=== PATIENT | female | born 1990 | race Caucasian/White ===

== ENCOUNTER 2016-06-11 05:10 | Inpatient (IN) | payer MEDICAID ==
[~2016-06-11] VITALS: Ht 154.9 cm; Wt 47.6 kg
[~2016-06-11 05:10] MED LIST: HYDR200T35 PO; NAPR-681 PO; PRED10TA PO
[2016-06-11] MEDS ORDERED: FAMOTIDINE 20MG/2ML VIAL IV ONE (06:15)
[2016-06-11] MEDS ORDERED: SODIUM CHLORIDE 0.9% 1000ML BAG (SEPSIS BOLUS) IV ONE (06:15)
[2016-06-11] MEDS ORDERED: METHYLPREDNISOLONE SOD SUCC 125 MG/2 ML VIAL IV ONE (06:15)
[2016-06-11] MEDS ORDERED: DIPHENHYDRAMINE 50MG/ML VIAL IV ONE (06:15)
[2016-06-11] MEDS ORDERED: VANCOMYCIN 1 G PREMIX 200 ML IV SCH (06:30)
[2016-06-11 06:45] LABS: HCG SCREEN NEGATIVE
[2016-06-11 06:46] LABS: PROTHROMBIN TIME 9.9 sec
[2016-06-11 06:51] LABS: ALANINE AMINOTRANSFERASE 25 IU/L (13-61); ALBUMIN 2.6 g/dL (3.4-5.0); ANION GAP 13; CALCIUM 7.4 mg/dL (8.5-10.1); CARBON DIOXIDE 24 mEq/L (21-32); CHLORIDE 109 mEq/L (98-107); INDEX HEMOLYSI 1 (1-3); INDEX ICTERIC 1 (1-4); INDEX LIPEMIC 1 (1-3); UREA NITROGEN BLOOD 12 mg/dL (7-21); eGFR > 60 mL/min (>60)
[2016-06-11 06:51] LABS: CLARITY URINE CLEAR (CLEAR); COLOR URINE YELLOW (YELLOW); GLUCOSE URINE NEGATIVE (NEGATIVE); KETONES URINE NEGATIVE (NEGATIVE); LEUKOCYTE ESTERASE URINE NEGATIVE (NEGATIVE); NITRITE URINE NEGATIVE (NEGATIVE); OCCULT BLOOD URINE NEGATIVE (NEGATIVE); PROTEIN URINE 3+ (NEGATIVE); SPECIFIC GRAVITY URINE 1.025 (1.005-1.030); UROBILINOGEN URINE 0.2 E.U./dL (0.2-1.0)
[2016-06-11 06:52] LABS: BASOPHILS % 0.7 % (0.0-2.0); EOSINOPHILS % 0.5 % (0.0-5.0); HEMOGLOBIN. 9.9 g/dL (12.0-16.0); LYMPHOCYTES % 49.6 % (20.0-50.0); MEAN CORPUSCULAR HEMOGLOBIN 28.1 pg (28.0-32.0); MEAN CORPUSCULAR HGB CONC 33.1 g/dL (31.0-37.0); MEAN CORPUSCULAR VOLUME 84.9 fL (81.0-99.0); MEAN PLATELET VOLUME 8.3 fl (7.4-10.4); MONOCYTES % 12.9 % (2.0-8.0); NEUTROPHILS % 36.3 % (40.0-76.0); PLATELET 231 x1000/uL (130-400); RED BLOOD CELL COUNT 3.53 mill/uL (4.2-5.4); RED CELL DISTRIBUTION WIDTH 16.6 % (11.6-14.6); WHITE BLOOD COUNT 2.7 x1000/uL (4.5-11.0)
[2016-06-11] MEDS ORDERED: PERMETHRIN 5% CREAM 60GM TOP ONE (07:30)
[2016-06-11 07:48] LABS: SQUAMOUS EPITHELIAL CELL URINE 1+ /lpf (RARE/1+)
[2016-06-11 07:49] LABS: BACTERIA URINE NONE SEEN; RBC URINE 0-2 /hpf (0-2)
[2016-06-11] MEDS ORDERED: ACETAMINOPHEN 650MG/20.3ML UDC GT PRN (15:30)
[2016-06-11] MEDS ORDERED: MAGNESIUM/ALUMINUM HYDROXIDE/SIMETHICONE 30ML UDC PO PRN (15:30)
[2016-06-11] MEDS ORDERED: IPRATROPIUM/ALBUTEROL 0.5-3(2.5)MG/3ML NEB INH PRN (15:30)
[2016-06-11] MEDS ORDERED: NA PHOS,M-B/NA PHOS,DI-BA ENEMA 118ML PR PRN (15:30)
[2016-06-11] MEDS ORDERED: ACETAMINOPHEN 650MG SUPP PR PRN (15:30)
[2016-06-11] MEDS ORDERED: ONDANSETRON HCL 4MG/2ML VIAL IV PRN (15:30)
[2016-06-11] MEDS ORDERED: GUAIFENESIN 200MG/10ML SUGAR FREE UDC PO PRN (15:30)
[2016-06-11] MEDS ORDERED: ACETAMINOPHEN 325MG TABLET PO PRN (15:30)
[2016-06-11] MEDS ORDERED: DOCUSATE SODIUM 100MG CAPSULE PO PRN (15:30)
[2016-06-11] MEDS ORDERED: PIPERACILLIN/TAZ 3.375G PREMIX 50 ML IV NR (16:15)
[2016-06-11] MEDS: HYDROCODONE/ACETAMINOPHEN 10/325MG TABLET PO PRN ×2 (17:18→22:42)
[2016-06-11 21:50] VITALS: BP 120/87
[2016-06-11] MEDS: SODIUM CHLORIDE 0.9% INJ 3ML FLUSH IVF SCH (22:20)
[2016-06-11] MEDS: PREDNISONE 20MG TABLET PO SCH (22:20)
[2016-06-11] MEDS: SODIUM CHLORIDE 0.9% 1,000 ML IV SCH (22:20)
[2016-06-11] MEDS: DIPHENHYDRAMINE 50MG/ML VIAL IV PRN (22:40)
[2016-06-12] MEDS: PIPERACILLIN/TAZ 3.375G PREMIX 50 ML IV SCH ×3 (00:33→17:14)
[2016-06-12] MEDS: DIPHENHYDRAMINE 50MG/ML VIAL IV PRN ×2 (02:47→09:55)
[2016-06-12] MEDS: HYDROCODONE/ACETAMINOPHEN 10/325MG TABLET PO PRN ×2 (02:48→08:21)
[2016-06-12 04:00] VITALS: BP 132/73
[2016-06-12] MEDS: SODIUM CHLORIDE 0.9% INJ 3ML FLUSH IVF SCH ×3 (06:24→23:08)
[2016-06-12 07:24] LABS: BASOPHILS % 0.2 % (0.0-2.0); HEMOGLOBIN. 9.5 g/dL (12.0-16.0); LYMPHOCYTES % 25.4 % (20.0-50.0); MEAN CORPUSCULAR HEMOGLOBIN 28.3 pg (28.0-32.0); MEAN CORPUSCULAR HGB CONC 32.8 g/dL (31.0-37.0); MEAN CORPUSCULAR VOLUME 86.4 fL (81.0-99.0); MEAN PLATELET VOLUME 8.9 fl (7.4-10.4); MONOCYTES % 4.1 % (2.0-8.0); NEUTROPHILS % 70.3 % (40.0-76.0); PLATELET 212 x1000/uL (130-400); RED BLOOD CELL COUNT 3.36 mill/uL (4.2-5.4); RED CELL DISTRIBUTION WIDTH 16.9 % (11.6-14.6)
[2016-06-12 07:32] LABS: ALANINE AMINOTRANSFERASE 43 IU/L (13-61); ALBUMIN 2.5 g/dL (3.4-5.0); ANION GAP 12; CALCIUM 6.9 mg/dL (8.5-10.1); CARBON DIOXIDE 23 mEq/L (21-32); CHLORIDE 109 mEq/L (98-107); HDL CHOLESTEROL 43 mg/dL (40-59); INDEX HEMOLYSI 1 (1-3); INDEX ICTERIC 1 (1-4); INDEX LIPEMIC 1 (1-3); LDL CHOLESTEROL 110 mg/dL (5-100); TRIGLYCERIDE 118 mg/dL (0-150); UREA NITROGEN BLOOD 14 mg/dL (7-21); eGFR > 60 mL/min (>60)
[2016-06-12 08:00] VITALS: BP 133/85
[2016-06-12] MEDS: PREDNISONE 20MG TABLET PO SCH (08:21)
[2016-06-12 10:14] LABS: *BARBITURATES SCREEN URINE NEGATIVE (NEGATIVE); *BENZODIAZEPINES SCREEN URINE NEGATIVE (NEGATIVE); *COCAINE SCREEN URINE NEGATIVE (NEGATIVE); ECSTASY MDMA SCREEN URINE NEGATIVE (NEGATIVE); METHADONE URINE SCREEN NEGATIVE (NEGATIVE); OPIATES URINE SCREEN NEGATIVE (NEGATIVE); PHENCYCLIDINE URINE SCREEN NEGATIVE (NEGATIVE)
[2016-06-12 10:17] LABS: *AMPHETAMINES SCREEN URINE PRESUMTIVE POSITIVE (NEGATIVE); CANNABINOID URINE SCREEN PRESUMTIVE POSITIVE (NEGATIVE)
[2016-06-12 12:00] VITALS: BP 170/105
[2016-06-12] MEDS: AMLODIPINE 10MG TABLET PO SCH (12:41)
[2016-06-12] MEDS: MORPHINE SULFATE 2 MG/ML CPJ (NOT FOR IM USE) IV PRN ×2 (12:42→23:08)
[2016-06-12 16:00] VITALS: BP 100/56
[2016-06-12 20:12] VITALS: BP 112/64
[2016-06-13] MEDS: SODIUM CHLORIDE 0.9% 1,000 ML IV SCH (01:30)
[2016-06-13] MEDS: PIPERACILLIN/TAZ 3.375G PREMIX 50 ML IV SCH ×2 (01:31→10:56)
[2016-06-13 04:00] VITALS: BP 105/62
[2016-06-13] MEDS: SODIUM CHLORIDE 0.9% INJ 3ML FLUSH IVF SCH (06:00)
[2016-06-13] MEDS: AMLODIPINE 10MG TABLET PO SCH (10:48)
[2016-06-13] MEDS: PREDNISONE 20MG TABLET PO SCH (10:48)
[2016-06-13] MEDS: MORPHINE SULFATE 2 MG/ML CPJ (NOT FOR IM USE) IV PRN (10:49)
[2016-06-13 16:06] VITALS: BP 112/72
== END 2016-06-13 17:40 | disposition home or self-care (01) | DRG 383 ==
LOC: ER 05:11 → 8WST 06:21
PROVIDERS: ADMIT Family Medicine; ATTEND Family Medicine
DX: L03.90 Cellulitis, unspecified (principal); E43 Unspecified severe protein-calorie malnutrition; N39.0 Urinary tract infection, site not specified; W57.XXXA Bitten or stung by nonvenomous insect and other nonvenomous arthropods, initial encounter; D72.819 Decreased white blood cell count, unspecified; L93.0 Discoid lupus erythematosus; D63.8 Anemia in other chronic diseases classified elsewhere; Z68.1 Body mass index [BMI] 19.9 or less, adult; Z91.19 Patient's noncompliance with other medical treatment and regimen; Y93.89 Activity, other specified; Y92.89 Other specified places as the place of occurrence of the external cause; Y99.8 Other external cause status
CPT/HCPCS: 36415; 71010; 80053; 80061; 80305; 81001; 83605; 84145; 84703; 85025; 85610; 85730; 87040; 87086; 93005; 93306; 96361; 96365; 96367; 96375; 99285; J1200; J2270; J2543; J2930; J3370; J3490; J7030; J7512

== ENCOUNTER 2020-02-27 13:54 | Emergency (ER) | payer MEDICAID ==
[~2020-02-27] VITALS: Ht 162.6 cm; Wt 55.0 kg
[2020-02-27] MEDS ORDERED: FAMOTIDINE 20MG/2ML VIAL IV STA (14:40)
[2020-02-27] MEDS ORDERED: MAGNESIUM/ALUMINUM HYDROXIDE/SIMETHICONE 30ML UDC PO STA (14:40)
[2020-02-27] MEDS ORDERED: MORPHINE SULFATE 4 MG/ML CPJ (NOT FOR IM USE) IV STA (14:40)
[2020-02-27] MEDS ORDERED: SODIUM CHLORIDE 0.9% 1,000 ML IV ONE (14:45)
[2020-02-27 15:19] LABS: HEMATOCRIT. 36.5 % (36.0-48.0); HEMOGLOBIN. 12.8 g/dL (12.0-16.0); MEAN CORPUSCULAR VOLUME 91.4 fL (81.0-99.0); MEAN PLATELET VOLUME 8.1 fl (7.4-10.4); PLATELET 314 x1000/uL (130-400); RED BLOOD CELL COUNT 3.99 mill/uL (4.2-5.4); RED CELL DISTRIBUTION WIDTH 11.7 % (11.6-14.6)
[2020-02-27 15:26] LABS: CHLORIDE 106 mEq/L (98-107)
[2020-02-27 15:29] LABS: INR 1.1; PROTHROMBIN TIME 11.1 sec (9.6-11.0)
[2020-02-27 16:13] LABS: PLATELET ESTIMATE NORMAL
[2020-02-27] MEDS ORDERED: MORPHINE SULFATE 4 MG/ML CPJ (NOT FOR IM USE) IV NR (18:00)
[2020-02-27] MEDS ORDERED: POTASSIUM CHLORIDE 20MEQ TABLET SR PO NR (18:45)
[2020-02-27 19:25] LABS: CLARITY URINE CLEAR (CLEAR); COLOR URINE DARK YELLOW (YELLOW); KETONES URINE NEGATIVE (NEGATIVE); LEUKOCYTE ESTERASE URINE TRACE (NEGATIVE); NITRITE URINE POSITIVE (NEGATIVE); OCCULT BLOOD URINE TRACE (NEGATIVE); PH URINE 5.5 (4.5-8.0); PROTEIN URINE 2+ (NEGATIVE); SPECIFIC GRAVITY URINE 1.031 (1.005-1.030)
[2020-02-27] MEDS ORDERED: CEFTRIAXONE SODIUM 250 MG/VIAL IV NR (19:30)
[2020-02-27] MEDS ORDERED: KETOROLAC 30MG/ML VIAL IV NR (19:30)
[2020-02-27] MEDS ORDERED: METRONIDAZOLE 500MG TABLET PO ONE (19:30)
[2020-02-27] MEDS ORDERED: AZITHROMYCIN 500 MG TABLET PO SCH (19:30)
[2020-02-27] MEDS ORDERED: LIDOCAINE HCL/PF 1% 10 MG/ML 5ML VIAL IJ NR (19:45)
[2020-02-27 21:21] VITALS: BP 103/61
[2020-02-27] MEDS ORDERED: IOHEXOL-300 100 ML BOTTLE ONE (21:33)
== END 2020-02-27 21:24 | disposition home or self-care (01) ==
LOC: ER 13:54
DX: R10.30 Lower abdominal pain, unspecified (principal)
CPT/HCPCS: 36415; 74177; 80053; 81003; 81025; 83690; 85025; 85610; 87491; 87591; 93005; 96361; 96374; 96375; 96376; 99285; J0696; J1885; J2270; J3490; J7030; Q9967

== ENCOUNTER 2020-02-29 12:33 | Inpatient (IN) | payer MEDICAID ==
[~2020-02-29] VITALS: Ht 154.9 cm; Wt 49.4 kg
[2020-02-29] MEDS ORDERED: KETOROLAC 30MG/ML VIAL IV STA (13:02)
[2020-02-29] MEDS ORDERED: ONDANSETRON HCL 4MG/2ML INJ IV STA (13:02)
[2020-02-29] MEDS ORDERED: SODIUM CHLORIDE 0.9% 1,000 ML IV ONE ×2 (13:15→15:30)
[2020-02-29 14:43] LABS: HEMATOCRIT. 40.7 % (36.0-48.0); HEMOGLOBIN. 14.2 g/dL (12.0-16.0); MEAN CORPUSCULAR HEMOGLOBIN 31.6 pg (28.0-32.0); MEAN CORPUSCULAR VOLUME 90.2 fL (81.0-99.0); MEAN PLATELET VOLUME 8.7 fl (7.4-10.4); PLATELET 340 x1000/uL (130-400); RED BLOOD CELL COUNT 4.51 mill/uL (4.2-5.4); RED CELL DISTRIBUTION WIDTH 11.5 % (11.6-14.6)
[2020-02-29 14:48] LABS: CHLORIDE 104 mEq/L (98-107)
[2020-02-29 15:06] LABS: HCG SCREEN NEGATIVE
[2020-02-29] MEDS ORDERED: MORPHINE SULFATE 4 MG/ML CPJ (NOT FOR IM USE) IV STA (15:16)
[2020-02-29] MEDS ORDERED: CEFTRIAXONE 1 G PREMIX 50 ML IV ONE (15:30)
[2020-02-29 15:38] LABS: PLATELET ESTIMATE NORMAL
[2020-02-29 16:30] LABS: CLARITY URINE TURBID (CLEAR); COLOR URINE ORANGE (YELLOW); KETONES URINE NEGATIVE (NEGATIVE); LEUKOCYTE ESTERASE URINE 2+ (NEGATIVE); NITRITE URINE POSITIVE (NEGATIVE); OCCULT BLOOD URINE 3+ (NEGATIVE); PH URINE 5.5 (4.5-8.0); PROTEIN URINE 3+ (NEGATIVE); SPECIFIC GRAVITY URINE 1.042 (1.005-1.030); UROBILINOGEN URINE 0.2 E.U./dL (0.2-1.0)
[2020-02-29] MEDS ORDERED: METRONIDAZOLE 500 MG PREMIX 100 ML IV NR (17:30)
[2020-02-29] MEDS ORDERED: MORPHINE SULFATE 4 MG/ML CPJ (NOT FOR IM USE) IV ONE (19:00)
[2020-02-29] MEDS ORDERED: NITROGLYCERIN 0.4MG TABLET SL SL PRN (19:00)
[2020-02-29] MEDS ORDERED: LORAZEPAM 2MG/ML CPJ IV PRN (19:00)
[2020-02-29] MEDS ORDERED: AMPICILLIN SOD/SULBACTAM NA 3 G in SODIUM CHLORIDE 0.9% 100 ML IV SCH (19:00)
[2020-02-29] MEDS ORDERED: ACETAMINOPHEN 650MG SUPP PR PRN ×2 (19:00)
[2020-02-29] MEDS ORDERED: KETOROLAC 15MG/ML VIAL IV PRN (19:11)
[2020-02-29] MEDS ORDERED: DOXYCYCLINE 100MG in DEXTROSE 5% WATER 100ML IV NR (19:15)
[2020-02-29] MEDS: ENOXAPARIN 40MG/0.4ML SYR SUBCUT SCH (19:23)
[2020-02-29] MEDS ORDERED: KCL 20MEQ/100ML PREMIX 100 ML IV NR ×2 (19:30→23:30)
[2020-02-29] MEDS ORDERED: DOXYCYCLINE HYCLATE 100 MG/VIAL IV NR (20:00)
[2020-02-29] MEDS ORDERED: PIPERACILLIN/TAZ 3.375G PREMIX 50 ML IV SCH (20:00)
[2020-02-29 21:05] VITALS: BP 110/76
[2020-02-29] MEDS: PIPERACILLIN/TAZOBACTAM 3.375 G in DEXT 5% WATER 100 ML IV SCH (23:16)
[2020-02-29] MEDS: ONDANSETRON HCL 4MG/2ML INJ IV PRN (23:26)
[2020-02-29] MEDS: MORPHINE SULFATE 2 MG/ML CPJ (NOT FOR IM USE) IV PRN (23:29)
[2020-03-01 00:33] VITALS: BP 114/72
[2020-03-01 04:00] VITALS: BP 116/64
[2020-03-01] MEDS: DOXYCYCLINE 100 MG in DEXT 5% WATER 100 ML IV SCH ×2 (04:22→14:19)
[2020-03-01] MEDS ORDERED: DOXY100C2 MT (05:51)
[2020-03-01] MEDS ORDERED: METR-167 MT (05:51)
[2020-03-01] MEDS ORDERED: IBUP-2029 MT (05:51)
[2020-03-01] MEDS: PIPERACILLIN/TAZOBACTAM 3.375 G in DEXT 5% WATER 100 ML IV SCH ×3 (06:21→21:03)
[2020-03-01 07:04] LABS: CHLORIDE 110 mEq/L (98-107)
[2020-03-01 07:11] LABS: PHOSPHORUS 1.9 mg/dL (2.5-4.9)
[2020-03-01 07:12] LABS: BASOPHILS % 0.2 % (0.0-2.0); EOSINOPHILS % 0.4 % (0.0-5.0); HEMATOCRIT. 30.2 % (36.0-48.0); HEMOGLOBIN. 10.7 g/dL (12.0-16.0); LYMPHOCYTES % 8.7 % (20.0-50.0); MEAN CORPUSCULAR HEMOGLOBIN 31.7 pg (28.0-32.0); MEAN CORPUSCULAR VOLUME 89.5 fL (81.0-99.0); MEAN PLATELET VOLUME 8.6 fl (7.4-10.4); MONOCYTES % 6.8 % (2.0-8.0); NEUTROPHILS % 83.9 % (40.0-76.0); PLATELET 304 x1000/uL (130-400); RED BLOOD CELL COUNT 3.37 mill/uL (4.2-5.4); RED CELL DISTRIBUTION WIDTH 11.7 % (11.6-14.6)
[2020-03-01 08:00] VITALS: BP_SYST 104; BP_SYST 114; BP_DIAS 66; BP_DIAS 76
[2020-03-01] MEDS: PANTOPRAZOLE SODIUM 40 MG/VIAL IV SCH (08:16)
[2020-03-01] MEDS: MORPHINE SULFATE 2 MG/ML CPJ (NOT FOR IM USE) IV PRN ×2 (08:31→18:17)
[2020-03-01 11:15] LABS: *BARBITURATES SCREEN URINE NEGATIVE (NEGATIVE); *BENZODIAZEPINES SCREEN URINE NEGATIVE (NEGATIVE); *COCAINE SCREEN URINE NEGATIVE (NEGATIVE); METHADONE URINE SCREEN NEGATIVE (NEGATIVE); PHENCYCLIDINE URINE SCREEN NEGATIVE (NEGATIVE)
[2020-03-01 11:38] LABS: *AMPHETAMINES SCREEN URINE PRESUMTIVE POSITIVE (NEGATIVE); CANNABINOID URINE SCREEN PRESUMTIVE POSITIVE (NEGATIVE); OPIATES URINE SCREEN PRESUMTIVE POSITIVE (NEGATIVE)
[2020-03-01] MEDS: DEXT 5%/LACTATED RINGERS 1,000 ML IV SCH ×2 (11:56→18:16)
[2020-03-01 12:00] VITALS: BP 111/64
[2020-03-01] MEDS ORDERED: POTASSIUM PHOS,M-BASIC-D-BASIC 15 MMOL in DEXT 5% WATER 245 ML IV SCH (15:00)
[2020-03-01] MEDS ORDERED: POTASSIUM CHLORIDE INJ 20 MEQ in DEXT 5% WATER 250 ML IV NR (15:00)
[2020-03-01] MEDS ORDERED: DIATR MEGLU/DIATRIZOATE SOLN 120ML ONE (15:49)
[2020-03-01] MEDS: ENOXAPARIN 40MG/0.4ML SYR SUBCUT SCH (18:16)
[2020-03-01 20:00] VITALS: BP 120/79
[2020-03-02] VITALS: BP 117/71
[2020-03-02] MEDS: PIPERACILLIN/TAZOBACTAM 3.375 G in DEXT 5% WATER 100 ML IV SCH ×4 (01:52→20:41)
[2020-03-02] MEDS: DOXYCYCLINE 100 MG in DEXT 5% WATER 100 ML IV SCH ×2 (02:54→14:14)
[2020-03-02] MEDS: DEXT 5%/LACTATED RINGERS 1,000 ML IV SCH ×3 (02:58→20:41)
[2020-03-02 04:00] VITALS: BP 116/74
[2020-03-02 07:10] LABS: HEMATOCRIT. 30.2 % (36.0-48.0); HEMOGLOBIN. 10.7 g/dL (12.0-16.0); MEAN CORPUSCULAR HEMOGLOBIN 31.7 pg (28.0-32.0); MEAN CORPUSCULAR VOLUME 89.9 fL (81.0-99.0); MEAN PLATELET VOLUME 8.3 fl (7.4-10.4); PLATELET 343 x1000/uL (130-400); RED BLOOD CELL COUNT 3.36 mill/uL (4.2-5.4); RED CELL DISTRIBUTION WIDTH 11.5 % (11.6-14.6)
[2020-03-02 07:42] LABS: CHLORIDE 110 mEq/L (98-107)
[2020-03-02 07:50] LABS: PHOSPHORUS 2.7 mg/dL (2.5-4.9)
[2020-03-02 08:00] VITALS: BP 124/87
[2020-03-02] MEDS: PANTOPRAZOLE SODIUM 40 MG/VIAL IV SCH (09:11)
[2020-03-02] MEDS ORDERED: POTASSIUM CHLORIDE 20MEQ TABLET SR PO NR (09:45)
[2020-03-02] MEDS ORDERED: POTASSIUM CHLORIDE INJ 40 MEQ in DEXT 5% WATER 250 ML IV ONE (11:00)
[2020-03-02 12:00] VITALS: BP 113/69
[2020-03-02 14:55] LABS: ATYPICAL LYMPHOCYTES 1
[2020-03-02 14:56] LABS: PLATELET ESTIMATE NORMAL
[2020-03-02 16:00] VITALS: BP 117/74
[2020-03-02] MEDS: ENOXAPARIN 40MG/0.4ML SYR SUBCUT SCH (19:00)
[2020-03-02 20:00] VITALS: BP 107/66
[2020-03-03] MEDS: PIPERACILLIN/TAZOBACTAM 3.375 G in DEXT 5% WATER 100 ML IV SCH ×2 (01:35→08:44)
[2020-03-03] MEDS: ONDANSETRON HCL 4MG/2ML INJ IV PRN (01:47)
[2020-03-03] MEDS: DOXYCYCLINE 100 MG in DEXT 5% WATER 100 ML IV SCH (03:07)
[2020-03-03] MEDS: DEXT 5%/LACTATED RINGERS 1,000 ML IV SCH (03:07)
[2020-03-03 04:00] VITALS: BP 117/85
[2020-03-03 08:00] VITALS: BP 102/68
[2020-03-03] MEDS ORDERED: FAMOTIDINE 20MG/2ML VIAL IV SCH (09:00)
[2020-03-03 10:42] VITALS: BP 103/68
== END 2020-03-03 12:17 | disposition home or self-care (01) | DRG 720 ==
LOC: ER 12:41 → 6WST 18:20 → ENRESERV 19:29
PROVIDERS: ADMIT Internal Medicine; ATTEND Internal Medicine
DX: A41.9 Sepsis, unspecified organism (principal); E43 Unspecified severe protein-calorie malnutrition; K56.609 Unspecified intestinal obstruction, unspecified as to partial versus complete obstruction; M32.9 Systemic lupus erythematosus, unspecified; N39.0 Urinary tract infection, site not specified; E87.6 Hypokalemia; F12.10 Cannabis abuse, uncomplicated; N73.9 Female pelvic inflammatory disease, unspecified; K56.7 Ileus, unspecified; I73.9 Peripheral vascular disease, unspecified; Z97.5 Presence of (intrauterine) contraceptive device; Z79.899 Other long term (current) drug therapy; Z68.20 Body mass index [BMI] 20.0-20.9, adult; F19.10 Other psychoactive substance abuse, uncomplicated
CPT/HCPCS: 36415; 74018; 74177; 74250; 76830; 76856; 80053; 80305; 81003; 83036; 83605; 83735; 84100; 84703; 85025; 85651; 86140; 87210; 87591; 93970; 96365; 99291; C9113; J0295; J0696; J1650; J1885; J2270; J2405; J2543; J3480; J3490; J7030; J7050; J7060; Q9963

== ENCOUNTER 2020-09-27 13:55 | Emergency (ER) | payer MEDICAID ==
[~2020-09-27] VITALS: Ht 157.5 cm; Wt 58.0 kg
[~2020-09-27 13:55] MED LIST changes: +DOXY100C2 MT; -HYDR200T35 PO; +IBUP-2029 MT; +METR-167 MT; -NAPR-681 PO; -PRED10TA PO
[2020-09-27] MEDS ORDERED: AMOX-494 MT (17:37)
[2020-09-27] MEDS ORDERED: IBUP-2029 MT (17:37)
[2020-09-27] MEDS ORDERED: IBUPROFEN 600MG TABLET PO ONE (17:45)
[2020-09-27 17:58] VITALS: BP 127/63
== END 2020-09-27 18:18 | disposition home or self-care (01) ==
LOC: ER 13:55
DX: H66.92 Otitis media, unspecified, left ear (principal); R03.0 Elevated blood-pressure reading, without diagnosis of hypertension
CPT/HCPCS: 99283